=== PATIENT | female | born 2000 | race Two or more races ===

== ENCOUNTER 2024-01-02 17:41 | Emergency (ER) | payer OTHER ==
[~2024-01-02] VITALS: Ht 152.4 cm; Wt 52.2 kg
[2024-01-02 18:54] VITALS: BP 117/77; O2SAT 100
[2024-01-02 21:37] LABS: HEMOGLOBIN 11.3 g/dL (12.0-15.00); MEAN CELL VOLUME 88.4 fL (80.00-100.00); MEAN CORPUSCULAR HEMOGLOBIN 29.5 pg (27.00-32.0); MEAN CORPUSCULAR HGB CONC 33.4 g/dl (32.0-36.0); PLATELET COUNT 377 K/uL (150-450); RED BLOOD COUNT 3.84 M/uL (4.00-6.00); RED CELL DISTRIBUTION WIDTH 13.8 % (11.5-14.5)
[2024-01-02 22:02] LABS: ALBUMIN 4.1 gm/dL (3.4-5.0); BILIRUBIN TOTAL 0.37 mg/dL (0.3-1.2); CALCIUM 9.3 mg/dL (8.5-10.1); CREATININE SERUM 0.65 mg/dL (0.55-1.02); GFR 111.98; GLOBULINA 3.5 G/DL (2.4-3.5); POTASSIUM 4.02 mEq/L (3.5-5.1); TOTAL PROTEIN 7.6 gm/dL (6.4-8.2)
[2024-01-02 22:14] LABS: URINE APPEARANCE Clear; URINE BILIRRUBIN Negative (NEGATIVE); URINE BLOOD Moderate; URINE COLOR Yellow; URINE GLUCOSE Negative (NEGATIVE); URINE KETONE Negative (NEGATIVE); URINE LEUKOCYTE Trace; URINE NITRATE Negative; URINE PROTEIN Negative (NEGATIVE)
[2024-01-02 22:17] LABS: URINE BACTERIA 287.2 uL (0.0-1933); URINE EPITHELIAL CELLS 26.4 uL (0.0-38.8); URINE RBC 10.3 uL (0.0-20.8)
[2024-01-02 22:19] LABS: URINE CAST 0.15 uL (0.0-1.40)
== END 2024-01-03 00:12 | disposition left against medical advice (07) ==
LOC: ER 17:43
PROVIDERS: Preventive Medicine Public Health & General Preventive Medicine
DX: K58.8 Other irritable bowel syndrome (principal); Z88.6 Allergy status to analgesic agent; Z88.8 Allergy status to other drugs, medicaments and biological substances; D64.89 Other specified anemias; E16.1 Other hypoglycemia; K59.00 Constipation, unspecified